=== PATIENT | female | born 1940 | race Caucasian/White ===

== ENCOUNTER 2021-02-24 10:00 | Outpatient (RCR) | payer MEDICARE, BC | END 2021-02-26 | LOC: PT 10:00 | PROVIDERS: ATTEND Internal Medicine | DX: G60.3 Idiopathic progressive neuropathy (principal); M47.26 Other spondylosis with radiculopathy, lumbar region; M62.81 Muscle weakness (generalized); R26.81 Unsteadiness on feet; R29.6 Repeated falls; Z91.81 History of falling ==

== ENCOUNTER 2021-03-13 12:58 | Outpatient (RCR) | payer MEDICARE, BC | END 2021-03-29 | LOC: PT 12:58 | PROVIDERS: ATTEND Internal Medicine | DX: G60.3 Idiopathic progressive neuropathy (principal); M47.26 Other spondylosis with radiculopathy, lumbar region; M62.81 Muscle weakness (generalized); R26.81 Unsteadiness on feet; R29.6 Repeated falls; Z91.81 History of falling | CPT/HCPCS: 97139 ==